=== PATIENT | female | born 1970 | race Caucasian/White ===

== ENCOUNTER 2020-04-01 08:49 | Observation (INO) | payer BC, OTHER ==
[2020-04-01 09:45] LABS: Protime INR 1.01
[2020-04-01 09:48] LABS: Basophils % 0.3 % (0-1.3); Hematocrit 45.9 % (36.0-45.0); Lymphocytes % 6.1 % (15.3-44.8); MPV 8.2 fL (7.6-11.3); RBC Red Blood Cell Count 5.39 M/uL (3.86-4.86)
[2020-04-01 09:55] LABS: ALT/SGPT 23 U/L (12-78); AST/SGOT 20 U/L (15-37); Albumin 4.2 g/dL (3.4-5.0); Alkaline Phosphatase 176 U/L (45-117); BUN Blood Urea Nitrogen 11 mg/dL (7-18); Bicarbonate 18 mmol/L (21-32); Bilirubin Direct 0.1 mg/dL (0-0.2); Bilirubin Total 0.6 mg/dL (0.2-1.0); Glucose Level 319 mg/dL (74-106); Magnesium 2.2 mg/dL (1.8-2.4); NT PRO-BNP 76 pg/mL (<125); Potassium 3.5 mmol/L (3.5-5.1); Protein, Total 8.7 g/dL (6.4-8.2); Sodium Level 125 mmol/L (136-145); Troponin (Emerg Dept Use Only) < 0.02 ng/mL (0.0-0.045)
--- NOTE | 2020-04-01 10:08 | RAD REPORT ---
EXAM DESCRIPTION: RAD - Chest Single View - 04/01/2020 9:48 am CLINICAL HISTORY: SOB, chest pain, vomiting COMPARISON: None TECHNIQUE: AP portable chest image was obtained 04/01/2020 9:48 am . FINDINGS: Lungs are clear. Heart and vasculature are normal. No measurable pleural effusion and no p neumothorax. No acute bony abnormality seen. No acute aortic findings suspected. IMPRESSION: No acute cardiopulmonary process.
[2020-04-01] MEDS ORDERED: LORazepam 2 MG/ML VIAL ONE (10:13)
[2020-04-01] MEDS ORDERED: METOCLOPRAMIDE 10 MG/2mL INJ ONE (10:13)
[2020-04-01] MEDS ORDERED: NA CHLORIDE 0.9% 1,000 ML ONE ×3 (10:13→14:46)
[2020-04-01 10:18] LABS: Blood Morphology Comment NOT SEEN (NOT SEEN); Platelet Estimate INCR
[2020-04-01 10:41] LABS: Arterial Blood Carboxyhemoglob 3.2 % (0-1.5); Blood Gas Oxyhemoglobin 92.5 % (94-97); Blood O2 Saturation 96.5 % (92-98.5)
[2020-04-01] MEDS ORDERED: INSULIN -REGULAR HUMAN 50 UNIT/0.5 ML ML ONE (10:59)
--- NOTE | 2020-04-01 11:06 | ER ---
Nurse's Notes [facility] Name: Shira Bangura Age: 49 yrs Sex: Female : 1970 Arrival Date: 04/01/2020 Time: 08:52 Bed 20 Private MD: Diagnosis: Hypo-osmolality and hyponatremia;Vomiting;Hyperglycemia, unspecified Presentation: 04/01 08:52 Chief complaint: EMS states: "the pt is reporting that she has been throwing up and jd3 having chest pain since Wednesday last week.". Coronavirus screen: nausea, vomiting. Client presents with at least one sign or symptom that may indicate coronavirus-19. Standard/surgical mask placed on the client. Provider contacted for isolation considerations. Ebola Screen: Patient negative for fever greater than or equal to 101.5 degrees Fahrenheit, and additional compatible Ebola Virus Disease symptoms. Initial Sepsis Screen: Does the patient meet any 2 criteria? No. Patient's initial sepsis screen is negative. Does the patient have a suspected source of infection? No. Patient's initial sepsis screen is negative. Risk Assessment: Do you want to hurt yourself or someone else? Patient reports no desire to harm self or others. Onset of symptoms was March 26, 2020. 08:52 Method Of Arrival: EMS: [facility] jd3 08:52 Acuity: TASHI 3 jd3 Historical: - Allergies: 08:55 PENICILLINS; jd3 08:55 Sulfa (Sulfonamide Antibiotics); jd3 08:55 Iodinated Contrast Media - IV Dye; jd3 - Home Meds: 08:55 Metformin Oral [Active]; Klonopin Oral [Active]; Prozac Oral [Active]; jd3 - PMHx: 08:55 Diabetes - NIDDM; jd3 - Immunization history:: Adult Immunizations unknown. - Social history:: Smoking status: unknown. Screenin:30 Abuse screen: Denies threats or abuse. Denies injuries from another. Nutritional ss screening: No deficits noted. Tuberculosis screening: Never had TB. Fall Risk None identified. Assessment: 09:30 General: Appears uncomfortable, Behavior is cooperative, anxious. Pain: Complains of ss pain in abdomen Pain currently is 7 out of 10 on a pain scale. Quality of pain is described as aching. Neuro: Level of Consciousness is awake, alert, obeys commands, Oriented to person, place, time, situation, Speech is normal, Facial symmetry appears normal. Cardiovascular: Pulses are palpable in right radial artery, right posterior tibial artery, left radial artery and left posterior tibial artery. Respiratory: Airway is patent Respiratory effort is even, unlabored, Respiratory pattern is regular, symmetrical. GI: Reports lower abdominal pain, upper abdominal pain, nausea, vomiting, since "began last week". : Denies burning with urination, urinary frequency. EENT: Nares are clear. Derm: Skin is intact, is healthy with good turgor, Skin is pink, warm \\T\\ dry. normal. Musculoskeletal: Circulation, motion, and sensation intact. Range of motion: intact in all extremities, Swelling absent. 10:30 Reassessment: Patient appears in no apparent distress at this time. Patient and/or ss family updated on plan of care and expected duration. Pain level reassessed. Patient is alert, oriented x 3, equal unlabored respirations, skin warm/dry/pink. Pt no longer appears anxious. Is very pleasant and thankful for care received thus far. Call light remain within reach. Patient denies pain at this time. Patient states feeling better. Patient states symptoms have improved. 11:18 Reassessment: Dr. Cooper at bedside with patient discussing possible admission. ss 12:30 Reassessment: Patient appears in no apparent distress at this time. Patient and/or ss family updated on plan of care and expected duration. Pain level reassessed. 13:00 Reassessment: Patient appears in no apparent distress at this time. No changes from ss previously documented assessment. Patient and/or family updated on plan of care and expected duration. Pain level reassessed. Pt aware of admission for further evaluation and treatment. Awaiting room assignment from warehouse technician. Will repeat BMP after 2nd liter bolus is completed. 14:09 Reassessment: Repeat BMP sent to lab at this time. Awaiting results. Awaiting room ss assignment for admission. Vital Signs: 08:55 BP 131 / 105; Pulse 125; Resp 20 S; Pulse Ox 97% on R/A; Weight 83.91 kg (R); Height 5 jd3 ft. 5 in. (165.10 cm) (R); Pain 6/10; 08:57 Temp 98.9(TE); ss 09:16 BP 164 / 113; Pulse 106; Resp 18; Pulse Ox 98% on R/A; ss 10:39 Pulse 89; Resp 17; Pulse Ox 99% on R/A; ss 10:48 BP 136 / 88; ss 13:45 BP 147 / 105; Pulse 91; Resp 16; Pulse Ox 99% ; Pain 0/10; ss 14:13 BP 154 / 81; ss 08:55 Body Mass Index 30.79 (83.91 kg, 165.10 cm) jd3 ED Course: 08:52 Patient arrived in ED. jd3 08:53 Triage completed. jd3 08:56 Arm band placed on. jd3 08:56 EKG completed in triage. Results shown to MD. jd3 09:07 Felton Zheng PA is PHCP. jmm 09:07 Dallin Berman MD is Attending Physician. jmm 09:16 Ange Gonzalez, KAREN is Primary Nurse. ss 09:30 Patient has correct armband on for positive identification. Placed in gown. Bed in low ss position. Call light in reach. Side rails up X2. engine monitor on. Pulse ox on. NIBP on. Warm blanket given. 09:34 Inserted saline lock: 22 gauge in left forearm, using aseptic technique. ss 09:48 XRAY Chest (1 view) In Process Unspecified. EDMS 11:05 Samson Cooper DO is Hospitalizing Provider. jmm 11:12 CT Stone Protocol In Process Unspecified. EDMS 12:55 First set of blood cultures drawn. em1 14:09 No provider procedures requiring assistance completed. Patient admitted, IV remains in ss place. Administered Medications: 09:36 Not Given (Patient Refused): diphenhydrAMINE 12.5 mg IVP once ss 10:02 Drug: NS 0.9% 1000 ml Route: IV; Rate: 1 bolus; Site: left wrist; ss 12:09 Follow up: IV Status: Completed infusion; IV Intake: 1000ml ss 10:04 Drug: Reglan 10 mg Route: IVP; Site: left wrist; ss 10:47 Follow up: Response: No adverse reaction ss 10:05 Drug: Ativan 1 mg Route: IVP; Site: left wrist; ss 10:47 Follow up: Response: No adverse reaction; Marked relief of symptoms; Anxiety decreased ss 10:46 Drug: Insulin Regular Human 10 units {Co-Signature: jd3 (Grayson Jimenez RN).} Route: ss IVP; Site: left forearm; 11:37 Follow up: Response: No adverse reaction; Blood sugar is lowered 12:08 Drug: NS 0.9% 1000 ml Route: IV; Rate: 1 bolus; Site: left forearm; ss 14:12 Follow up: IV Status: Completed infusion; IV Intake: 1000ml ss Intake: 12:09 IV: 1000ml; Total: 1000ml. 14:12 IV: 1000ml; Total: 2000ml. Outcome: 11:06 Decision to Hospitalize by Provider. jaydon 13:00 Admitted to ER Hold. Please see [facility] for further documentation. 13:00 Condition: good 13:00 Instructed on the need for admit. 16:25 Patient left the ED. Signatures: Dispatcher [employer] EDFelton Lucas PA PA jmm Martinez, Eric em1 Ange Gonzalez RN RN ss Davies, Jonathon, RN RN jd3 Grayson Jimenez RN jd3
--- NOTE | 2020-04-01 11:06 | EDPHYS ---
Physician Documentation [facility] Name: Shira Bangura Age: 49 yrs Sex: Female : 1970 Arrival Date: 04/01/2020 Time: 08:52 Bed 20 Private MD: ED Physician Dallin Berman HPI: 04/01 09:19 This 49 yrs old Female presents to ER via EMS with complaints of Vomiting. m 09:19 The patient presents to the emergency department with nausea, vomiting. Onset: The jmm symptoms/episode began/occurred gradually, 1 week(s) ago. Possible causes:. The symptoms are aggravated by nothing. The symptoms are alleviated by nothing. This is a 49 year old female with a history of DM, anxiety that presents to the ED with complaints of vomiting for approx 1 week. Denies recent abx use, recent travel. Patient states she has been out of her Klonopin. Denies abdominal pain, chest pain. . Historical: - Allergies: 08:55 PENICILLINS; jd3 08:55 Sulfa (Sulfonamide Antibiotics); jd3 08:55 Iodinated Contrast Media - IV Dye; jd3 - Home Meds: 08:55 Metformin Oral [Active]; Klonopin Oral [Active]; Prozac Oral [Active]; jd3 - PMHx: 08:55 Diabetes - NIDDM; jd3 - Immunization history:: Adult Immunizations unknown. - Social history:: Smoking status: unknown. ROS: 09:19 Constitutional: Negative for fever, chills, and weight loss, Cardiovascular: Negative jmm for chest pain, palpitations, and edema. 09:19 Respiratory: Positive for shortness of breath. 09:19 Abdomen/GI: Positive for abdominal pain. 09:19 All other systems are negative. Exam: 09:19 Head/Face: atraumatic. Eyes: EOMI, no conjunctival erythema appreciated ENT: Moist jmm Mucus Membranes Neck: Trachea midline, Supple 09:19 Chest/axilla: Normal chest wall appearance and motion. 09:19 Respiratory: Normal respirations, no respiratory distress appreciated Abdomen/GI: Non distended, soft Back: Normal ROM Skin: General appearance color normal MS/ Extremity: Moves all extremities, no obvious deformities appreciated, no edema noted to the lower extremities Neuro: Awake and alert, normal gait Psych: Behavior is normal, Mood is normal, Patient is cooperative and pleasant 09:19 Constitutional: The patient appears alert, awake, anxious. 09:19 Cardiovascular: Rate: tachycardic, Rhythm: regular, Pulses: no pulse deficits are appreciated. Vital Signs: 08:55 BP 131 / 105; Pulse 125; Resp 20 S; Pulse Ox 97% on R/A; Weight 83.91 kg (R); Height 5 jd3 ft. 5 in. (165.10 cm) (R); Pain 6/10; 08:57 Temp 98.9(TE); ss 09:16 BP 164 / 113; Pulse 106; Resp 18; Pulse Ox 98% on R/A; ss 10:39 Pulse 89; Resp 17; Pulse Ox 99% on R/A; ss 10:48 BP 136 / 88; ss 13:45 BP 147 / 105; Pulse 91; Resp 16; Pulse Ox 99% ; Pain 0/10; ss 14:13 BP 154 / 81; ss 08:55 Body Mass Index 30.79 (83.91 kg, 165.10 cm) jd3 MDM: 09:09 Patient medically screened. [facility] 11:02 Data reviewed: vital signs, nurses notes. Counseling: I had a detailed discussion with jaydon the patient and/or guardian regarding: the historical points, exam findings, and any diagnostic results supporting the discharge/admit diagnosis, lab results, radiology results, the need for further work-up and treatment in the hospital. ED course: I discussed the patient with Dr. Cooper whom accepted the patient for admisison. 04/01 09:16 Order name: Basic Metabolic Panel; Complete Time: 09:56 [facility] 04/01 09:16 Order name: CBC with Diff; Complete Time: 10:24 [facility] 04/01 09:16 Order name: LFT's; Complete Time: 09:56 [facility] 04/01 09:16 Order name: Magnesium; Complete Time: 09:56 [facility] 04/01 09:16 Order name: NT PRO-BNP; Complete Time: 09:56 [facility] 04/01 09:16 Order name: PT-INR; Complete Time: 09:56 [facility] 04/01 09:16 Order name: Troponin (emerg Dept Use Only); Complete Time: 09:56 [facility] 04/01 09:41 Order name: D-Dimer; Complete Time: 09:56 [facility] 04/01 10:09 Order name: ABG; Complete Time: 11:31 [facility] 04/01 10:18 Order name: Manual Differential; Complete Time: 10:24 [facility] 04/01 10:51 Order name: UDS; Complete Time: 12:56 [facility] 04/01 11:00 Order name: Ketone, Serum; Complete Time: 11:27 [facility] 04/01 09:16 Order name: XRAY Chest (1 view); Complete Time: 10:15 [facility] 04/01 10:51 Order name: CT Stone Protocol; Complete Time: 11:44 [facility] 04/01 11:42 Order name: Glucose, Ancillary Testing; Complete Time: 11:44 [facility] 04/01 12:05 Order name: Blood Culture [facility] 04/01 12:12 Order name: Urine Dipstick--Ancillary (enter results) 04/01 12:12 Order name: Urine --Ancillary (enter results) 04/01 12:17 Order name: SARS-COV-2 RT PCR; Complete Time: 12:56 [facility] 04/01 13:18 Order name: Urine --Ancillary; Complete Time: 13:26 [facility] 04/01 13:19 Order name: Urine Dipstick-Ancillary; Complete Time: 13:26 [facility] 04/01 13:48 Order name: BMP [facility] 04/01 13:48 Order name: Hemoglobin A1c [facility] 04/01 14:43 Order name: Basic Metabolic Panel; Complete Time: 15:02 [facility] 04/01 15:01 Order name: Acetone Level; Complete Time: 15:02 [facility] 04/01 15:09 Order name: Hemoglobin A1c; Complete Time: 15:30 [facility] 04/01 15:10 Order name: Glucose, Ancillary Testing; Complete Time: 15:30 [facility] 04/01 16:21 Order name: Procalcitonin; Complete Time: 18:22 [facility] 04/01 09:16 Order name: EKG; Complete Time: 09:17 [facility] 04/01 09:16 Order name: Cardiac monitoring; Complete Time: 09:26 [facility] 04/01 09:16 Order name: EKG - Nurse/Tech; Complete Time: 09:26 [facility] 04/01 09:16 Order name: IV Saline Lock; Complete Time: 10:05 [facility] 04/01 09:16 Order name: Labs collected and sent; Complete Time: 10:05 [facility] 04/01 09:16 Order name: O2 Per Protocol; Complete Time: 09:26 [facility] 04/01 09:16 Order name: O2 Sat Monitoring; Complete Time: : [facility] 04/01 10:25 Order name: Urine Dipstick-Ancillary (obtain specimen); Complete Time: 12:08 [facility] Administered Medications: 09:36 Not Given (Patient Refused): diphenhydrAMINE 12.5 mg IVP once ss 10:02 Drug: NS 0.9% 1000 ml Route: IV; Rate: 1 bolus; Site: left wrist; ss 12:09 Follow up: IV Status: Completed infusion; IV Intake: 1000ml ss 10:04 Drug: Reglan 10 mg Route: IVP; Site: left wrist; ss 10:47 Follow up: Response: No adverse reaction ss 10:05 Drug: Ativan 1 mg Route: IVP; Site: left wrist; ss 10:47 Follow up: Response: No adverse reaction; Marked relief of symptoms; Anxiety decreased ss 10:46 Drug: Insulin Regular Human 10 units {Co-Signature: tye (Grayson Jimenez RN).} Route: ss IVP; Site: left forearm; 11:37 Follow up: Response: No adverse reaction; Blood sugar is lowered ss 12:08 Drug: NS 0.9% 1000 ml Route: IV; Rate: 1 bolus; Site: left forearm; ss 14:12 Follow up: IV Status: Completed infusion; IV Intake: 1000ml ss Disposition: 18:59 Co-signature as Attending Physician, Dallin Berman MD I agree with the assessment and [facility] plan of care. Disposition: 04/01/20 11:06 Hospitalization ordered by Samson Cooper for Observation. Preliminary diagnosis are Hypo-osmolality and hyponatremia, Vomiting, Hyperglycemia, unspecified. - Bed requested for Telemetry/MedSurg (observation). - Status is Observation. ss - Condition is Stable. - Problem is new. - Symptoms are unchanged. Signatures: Dispatcher [employer] Vida Patel, RN Dallin Joshi MD MD cha Mickail, Joel, PA PA jmm Smirch, Shelby, RN RN ss Davies, Jonathon, RN RN jd3 Grayson Jimenez RN jd3 Corrections: (The following items were deleted from the chart) 09:40 09:26 D-DIMER+COAG.LAB.BRZ ordered. EDMS EDMS 11:23 10:53 CORONAVIRUS+MR.LAB.BRZ ordered. EDMS EDMS 14:19 11:06 Hospitalization Ordered by Samson Cooper DO for Observation. Preliminary ss diagnosis is Hypo-osmolality and hyponatremia; Vomiting; Hyperglycemia, unspecified. Bed requested for Telemetry/MedSurg (observation). Status is Observation. Condition is Stable. Problem is new. Symptoms are unchanged. jmm 16:10 14:19 04/01/2020 11:06 Hospitalization Ordered by Samson Cooper DO for Observation. dw Preliminary diagnosis is Hypo-osmolality and hyponatremia; Vomiting; Hyperglycemia, unspecified. Bed requested for [facility] ER HOLD. Status is Observation. Condition is Stable. Problem is new. Symptoms are unchanged. ss 16:25 16:10 04/01/2020 11:06 Hospitalization Ordered by Samson Cooper DO for Observation. ss Preliminary diagnosis is Hypo-osmolality and hyponatremia; Vomiting; Hyperglycemia, unspecified. Bed requested for Telemetry/MedSurg (observation). Status is Observation. Condition is Stable. Problem is new. Symptoms are unchanged. dw
--- NOTE | 2020-04-01 11:40 | RAD REPORT ---
EXAM DESCRIPTION: CT - Stone Protocol - 04/01/2020 11:12 am CLINICAL HISTORY: ABD PAIN COMPARISON: No comparisons TECHNIQUE: Axial [address] imaging of the abdomen and pelvis was performed without IV contrast. No IV contrast was given because of allergy, abnormal renal function, patient refusal or physician re quest. No oral contrast. All CT scans are performed using dose optimization technique as appropriate and may include automated exposure control or mA/KV adjustment according to patient size. FINDINGS: No suspicious findings in the lung bases. No pericardial thickening or effusion. Normal size liver shows fatty infiltration pattern. In the central segment IV along the superior milena in of the gallbladder fossa there is a 2.4 centimeter oval low-density focus. This may be a cyst. Hem angioma is possible. Aggressive lesion is unlikely. There are no comparisons. No other liver lesion. Spleen and pancreas show no suspicious findings. Gallbladder is normal size. Gallbladder content is m ore dense than typically seen for bile. This may be dense bile. Sludge or stones can be occult on CT imaging. Follow-up sonography could be performed if there are findings on clinical exam for gallbladd er disease. No biliary tree dilatation. No hydronephrosis or suspicious renal mass. Patient has bilateral extrarenal pelves is a normal varia nt. No obstructing or nonobstructing calculi. No significant adrenal finding. Isodense renal masses a nd pyelonephritis cannot be excluded in the absence of IV contrast. The urinary bladder is without si gnificant finding. Uterus is somewhat bulky and may contain isodense fibroids. No suspicious ovarian finding. No dilated bowel loops or bowel wall thickening. No appendicitis. No active GI process seen. No free air, free fluid or inflammatory stranding. No hernia, mass or bulky lymphadenopathy. No suspicious bony findings. Prominent for age lower lumbar bone and disc degenerative change. IMPRESSION: Noncontrast CT study shows no acute or emergent finding. Fatty infiltration of the liver is present. Low-density 2.4 centimeter mass central liver could be a minimally complex cyst or possible hemangioma. Follow-up outpatient ultrasound could be performed. Hyperdensity of the gallbladder lumen content could be thickened bile. Stones and sludge can be occul t. Follow-up sonography can be performed as warranted. No acute GI finding. Possible isodense fibroids in a bulky uterus. No ovarian abnormality. Full assessment is limited is the absence of IV contrast.
[2020-04-01 12:20] LABS: Barbiturates NEGATIVE (NEGATIVE); Benzodiazepines NEGATIVE (NEGATIVE); Cocaine NEGATIVE (NEGATIVE); METHAMPHETAM NEGATIVE (NEGATIVE); Methadone NEGATIVE (NEGATIVE); Opiates NEGATIVE (NEGATIVE); Phencyclidine NEGATIVE (NEGATIVE); THC Cannibis NEGATIVE (NEGATIVE)
[2020-04-01 13:18] LABS: Urine Blood NEGATIVE (NEG); Urine Glucose TRACE (NEG); Urine Protein 1+ (NEG)
--- NOTE | 2020-04-01 13:52 | P.HP ---
Certification for Inpatient Patient admitted to: Observation With expected LOS: <2 Midnights Patient will require the following post-hospital care: None Practitioner: I am a practitioner with admitting privileges, knowledge of patient current condition, hospital course, and medical plan of care. Services: Services provided to patient in accordance with Admission requirements found in Title 42 Section 412.3 of the Code of Federal Regulations Patient History Date of Service: 04/01/20 Primary Care Provider: none Reason for admission: nausea, vomiting, not feeling well. History of Present Illness: 49-year-old female with history of diabetes, panic disorder, hypertension. Patient presented with 1 week of nausea, vomiting. She reported that around Wednesday last week she felt bad all over. She denied any significant abdominal pain. She also reported some shortness of breath. Patient has been trying to get refills on her medication this includes Klonopin. She was trying to establish care with somebody here locally. Patient continue to have nausea and vomiting. She was not able to take good oral intake. Patient denied any significant fever, chills. Although she did report some hot flashes. She came to the ER for further evaluation. In the ER patient was evaluated. Vital signs stable. White count 16.9, hemoglobin 15. Platelet count 433. ABG shows a pH is 7.365. Sodium 125, potassium 3.5. BUN of 11, creatinine 0.91 with a GFR 65. Glucose 319. Acetone in negative. Anion gap 15. Troponin unremarkable. Urine drug screen negative. Chest x-ray unremarkable. COVID negative. Patient was given IV fluids in the emergency room. Patient was admitted for further evaluation and treatment. When I saw the patient ER, patient appeared stable. Allergies Penicillins Allergy (Verified 04/01/20 12:26) Hives Home medications list reviewed: Yes - Past Medical/Surgical History Diabetic: Yes -: Diabetes mellitus type 2 [id number] -: Panic disorder -: Hypertension -: Tobacco abuse Past Surgical History: Patient denies surgical history Psychosocial/ Personal History: Currently settling in the area. - Family History Family History: Reviewed- Non-Contributory - Social History Smoking Status: Light Tobacco smoker (1-9 cigarettes/day) Counseled patient to stop smoking for: less than 10 minutes Smoking therapy provided: Yes Patient receptive to therapy: Yes Alcohol use: No CD- Drugs: No Caffeine use: Yes Place of Residence: Home Review of Systems General: Sweats, Weakness, Malaise, As per HPI Eyes: Unremarkable ENT: Unremarkable Respiratory: Shortness of Breath, As per HPI Cardiovascular: Unremarkable Gastrointestinal: Nausea, Vomiting, As per HPI Genitourinary: Unremarkable Musculoskeletal: As per HPI Integumentary: Unremarkable Neurological: As per HPI Lymphatics: Unremarkable Physical Examination - Physical Exam General: Alert, In no apparent distress, Oriented x3, Cooperative, Other (Multiple tattoos noted) HEENT: Atraumatic, Normocephalic, Other (Dry mucous membranes) Neck: Supple Respiratory: Clear to auscultation bilaterally, Normal air movement Cardiovascular: Normal pulses, Regular rate/rhythm Gastrointestinal: Normal bowel sounds, No tenderness, No masses, No rebound, No guarding Musculoskeletal: No erythema, No tenderness, No warmth Integumentary: No tenderness/swelling Neurological: Normal speech, Normal strength at 5/5 x4 extr, Normal tone, Normal affect - Studies Laboratory Data (last 24 hrs) 04/01/20 09:30: PT 11.9, INR 1.01 04/01/20 09:30: WBC 16.9 H, Hgb 15.6 H, Hct 45.9 H, Plt Count 433 H 04/01/20 09:30: Sodium 125 L, Potassium 3.5, BUN 11, Creatinine 0.91, Glucose 319 H, Magnesium 2.2, Total Bilirubin 0.6, AST 20, ALT 23, Alkaline Phosphatase 176 H Assessment and Plan - Plan Impression: Nausea and vomiting secondary to diabetes mellitus type 2 with hyperglycemia Hyponatremia with dehydration Hypertension Panic disorder Possible complex cyst versus hemangioma Possible uterine fibroids Plan: Nausea and vomiting secondary to diabetes mellitus type 2 with hyperglycemia: Patient will be admitted for further evaluation and treatment. Patient should receive another fluid bolus in the emergency room. Will recheck lab soon to evaluate for possible DKA. Urine drug screen negative. Acetone serum-negative. No evidence of infection at this time. Will provide medication for nausea. Will check A1c to evaluate her diabetes. Will start low-dose basal insulin for better diabetic control. Anticipate A1c elevation. Will need better control of diabetes. Will hold metformin at this time. Continue with IV fluids maintenance. Provide DVT prophylaxis-Lovenox. Will continue to reassess. Anticipate improvement over the next 24 hr with possible discharge. Hyponatremia with dehydration: Patient given IV fluid bolus in the emergency room. Will give another bolus of IV fluids then continue maintenance fluids. Recheck lab soon to monitor her progress. Will start with a full liquid diet then advance to 2000 ADA diet. Hypertension: Restart lisinopril. will monitor and adjust appropriately. Panic disorder: Patient reports taking 4 mg of Klonopin twice daily. This appears to be a very large dose of Klonopin. Recommend to wean this off as an outpatient. Will provide Klonopin 1 mg 3 times a day as needed at this time. Will monitor closely. Patient would benefit with psychiatric evaluation as an outpatient. Risks of continued benzodiazepine use address in detail. Will continue with Prozac. Possible complex cyst versus hemangioma: Recommend abdominal ultrasound as an outpatient to further monitor and address. Possible uterine fibroids: Recommend pelvic ultrasound to further evaluate. Patient should have annual evaluation with gynecology as an outpatient. Discharge Plan: Home Plan to discharge in: 48 Hours - Advance Directives Does patient have a Living Will: No Does patient have a Durable POA for Healthcare: No - Code Status/Comfort Care Code Status Assessed: Yes (Patient is full code) Time Spent Managing Pts Care (In Minutes): 55
[2020-04-01] MEDS ORDERED: ONDANSETRON 4 MG/2 ML VIAL IV PRN (14:07)
[2020-04-01] MEDS ORDERED: ACETAMINOPHEN 500 MG TAB PO PRN (14:07)
[2020-04-01] MEDS ORDERED: GLUCAGON 1 MG/VIAL IM PRN (14:07)
[2020-04-01 14:41] LABS: BUN Blood Urea Nitrogen 10 mg/dL (7-18); Bicarbonate 21 mmol/L (21-32); Glucose Level 197 mg/dL (74-106); Potassium 3.5 mmol/L (3.5-5.1); Sodium Level 136 mmol/L (136-145)
[2020-04-01] MEDS ORDERED: INSULIN GLARGINE 100 UNITS/ML SQ ONE (14:46)
[2020-04-01] MEDS: NA CHLORIDE 0.9% 1,000 ML IV SCH ×2 (14:50→23:42)
[2020-04-01] MEDS: INSULIN GLARGINE 100 UNITS/ML SQ SCH (14:50)
[2020-04-01] MEDS ORDERED: D50W 25 GM/50 ML VIAL IV PRN (14:58)
[2020-04-01 15:53] LABS: Urine Appearance CLEAR; Urine Bilirubin NEGATIVE (NEG); Urine Blood NEGATIVE (NEG); Urine Color YELLOW; Urine Glucose TRACE (NEG); Urine Protein 1+ (NEG); Urine pH 6.5 (5.0-7.0)
[2020-04-01] MEDS: ENOXAPARIN 40 MG/0.4 ML SQ SCH (16:00)
[2020-04-01 16:47] LABS: Urine Amorphous Sediment TRACE /HPF (NONE SEEN); Urine Bacteria <20 /HPF (<20); Urine Microscopic Reflex ORDER UMIC; Urine RBC <5 /HPF (NONE SEEN)
[2020-04-01] MEDS: INSULIN -REGULAR HUMAN 50 UNIT/0.5 ML ML SQ SCH ×2 (17:21→20:28)
[2020-04-01] MEDS: clonazePAM 1 MG TAB PO PRN (17:23)
[2020-04-01 17:37] VITALS: BMI 29.9
[2020-04-01] MEDS: FAMOTIDINE 20 MG TAB PO SCH (20:28)
[2020-04-02] MEDS: clonazePAM 1 MG TAB PO PRN ×2 (02:55→08:26)
[2020-04-02] MEDS: NA CHLORIDE 0.9% 1,000 ML IV SCH ×2 (04:48→05:35)
[2020-04-02 05:39] LABS: Basophils % 0.9 % (0-1.3); Hematocrit 36.9 % (36.0-45.0); Lymphocytes % 20.6 % (15.3-44.8); MPV 7.8 fL (7.6-11.3)
[2020-04-02 06:01] LABS: ALT/SGPT 15 U/L (12-78); AST/SGOT 13 U/L (15-37); Albumin 3.1 g/dL (3.4-5.0); Alkaline Phosphatase 123 U/L (45-117); BUN Blood Urea Nitrogen 9 mg/dL (7-18); Bicarbonate 21 mmol/L (21-32); Bilirubin Total 0.3 mg/dL (0.2-1.0); Glucose Level 122 mg/dL (74-106); Magnesium 2.3 mg/dL (1.8-2.4); Potassium 3.1 mmol/L (3.5-5.1); Protein, Total 6.1 g/dL (6.4-8.2); Sodium Level 140 mmol/L (136-145)
[2020-04-02] MEDS ORDERED: POTASSIUM CL SA 10 MEQ TAB PO ONE (08:00)
[2020-04-02 08:08] VITALS: TEMP 97
[2020-04-02] MEDS: INSULIN -REGULAR HUMAN 50 UNIT/0.5 ML ML SQ SCH ×2 (08:24→11:14)
[2020-04-02] MEDS: FAMOTIDINE 20 MG TAB PO SCH (08:25)
[2020-04-02] MEDS: INSULIN GLARGINE 100 UNITS/ML SQ SCH (08:25)
[2020-04-02] MEDS: ENOXAPARIN 40 MG/0.4 ML SQ SCH ×2 (08:26→08:32)
[2020-04-02] MEDS ORDERED: FLUOXETINE 20 MG CAP PO SCH (09:00)
[2020-04-02] MEDS ORDERED: lisinopriL 10 MG TAB PO SCH (09:00)
[2020-04-02] MEDS ORDERED: METOPROLOL TAR 25 MG TAB PO SCH (09:04)
--- NOTE | 2020-04-02 09:18 | P.DS ---
Admission Date: 04/01/20 Discharge Date: 04/02/20 Primary Care Provider: none Disposition: ROUTINE DISCHARGE Discharge Condition: GOOD Reason for Admission: nausea, vomiting, not feeling well. Consultations: none Procedures: CXR: FINDINGS: Lungs are clear. Heart and vasculature are normal. No measurable pleural effusion and no pneumothorax. No acute bony abnormality seen. No acute aortic findings suspected. IMPRESSION: No acute cardiopulmonary process. CT scan: FINDINGS: No suspicious findings in the lung bases. No pericardial thickening or effusion. Normal size liver shows fatty infiltration pattern. In the central segment IV along the superior margin of the gallbladder fossa there is a 2.4 centimeter oval low-density focus. This may be a cyst. Hemangioma is possible. Aggressive lesion is unlikely. There are no comparisons. No other liver lesion. Spleen and pancreas show no suspicious findings. Gallbladder is normal size. Gallbladder content is more dense than typically seen for bile. This may be dense bile. Sludge or stones can be occult on CT imaging. Follow-up sonography could be performed if there are findings on clinical exam for gallbladder disease. No biliary tree dilatation. No hydronephrosis or suspicious renal mass. Patient has bilateral extrarenal pelves is a normal variant. No obstructing or nonobstructing calculi. No significant adrenal finding. Isodense renal masses and pyelonephritis cannot be excluded in the absence of IV contrast. The urinary bladder is without significant finding. Uterus is somewhat bulky and may contain isodense fibroids. No suspicious ovarian finding. No dilated bowel loops or bowel wall thickening. No appendicitis. No active GI process seen. No free air, free fluid or inflammatory stranding. No hernia, mass or bulky lymphadenopathy. No suspicious bony findings. Prominent for age lower lumbar bone and disc degenerative change. IMPRESSION: Noncontrast CT study shows no acute or emergent finding. Fatty infiltration of the liver is present. Low-density 2.4 centimeter mass central liver could be a minimally complex cyst or possible hemangioma. Follow-up outpatient ultrasound could be performed. Hyperdensity of the gallbladder lumen content could be thickened bile. Stones and sludge can be occult. Follow-up sonography can be performed as warranted. No acute GI finding. Possible isodense fibroids in a bulky uterus. No ovarian abnormality. Medical Problem List: Nausea and vomiting secondary to diabetes mellitus type 2 with hyperglycemia Hyponatremia with dehydration Hypertension Panic disorder Possible complex cyst versus hemangioma Possible uterine fibroids Brief History of Present Illness: 49-year-old female with history of diabetes, panic disorder, hypertension. Patient presented with 1 week of nausea, vomiting. She reported that around Wednesday last week she felt bad all over. She denied any significant abdominal pain. She also reported some shortness of breath. Patient has been trying to get refills on her medication this includes Klonopin. She was trying to establish care with somebody here locally. Patient continue to have nausea and vomiting. She was not able to take good oral intake. Patient denied any significant fever, chills. Although she did report some hot flashes. She came to the ER for further evaluation. In the ER patient was evaluated. Vital signs stable. White count 16.9, hemoglobin 15. Platelet count 433. ABG shows a pH is 7.365. Sodium 125, potassium 3.5. BUN of 11, creatinine 0.91 with a GFR 65. Glucose 319. Acetone in negative. Anion gap 15. Troponin unremarkable. Urine drug screen negative. Chest x-ray unremarkable. COVID negative. Patient was given IV fluids in the emergency room. Patient was admitted for further evaluation and treatment. When I saw the patient ER, patient appeared stable. Hospital Course: Patient presented with Nausea and vomiting. Patient found to have hyperglycemia related to diabetes mellitus type 2. Patient was evaluated for DKA. Patient had negative serum acetone. Repeat lab showed no evidence of DKA. Patient was started on treatment for diabetes. Patient found to have hemoglobin A1c of 9.2. Patient needs better diabetic control. Nausea and vomiting may be related to underlying GERD. At discharge will provide Pepcid 20 mg 1 pill twice daily for GERD. As for her diabetes will start glimepiride 1 mg 1 pill twice daily. Recommend to monitor blood sugars at least twice daily. Recommend to maintain blood sugar less than 140 fasting and less than 200 after meals. Further adjustment in medication can be done by her PCP. Will provide a list of PCPs in the area to establish care and further address her diabetes. Diabetic education provided. Recommend recheck hemoglobin A1c in 3 months to monitor her progress. Patient had hyponatremia with dehydration. This is likely from her nausea and vomiting. This has resolved. Patient back to baseline. Encourage good oral intake. Recommend to recheck lab-BMP in 2-4 weeks to monitor her progress. Patient with hypertension. Patient previously on lisinopril. Patient required additional medication for better blood pressure control. At discharge patient will continue with metoprolol 25 mg 1 pill twice daily and lisinopril 10 mg 1 pill twice daily. Recommend to maintain blood pressure less than 130/80. Further adjustment may be required. This can be done with the help of her PCP. Education on hypertension will be provided. Patient with panic disorder. Patient takes Klonopin and Prozac. Patient gets her medication from a doctor out of [place], [place]. Her use of Klonopin was reviewed on the [place] prescription monitoring program. Her most recent refill of Klonopin was on 03/05/20. She also had another refill of medication on 02/28/20. Her overdose risk score was 420. This was addressed in detail with the patient. Education provided. Recommend to wean off benzodiazepine. At discharge she may continue with her Prozac medication. Recommend follow up with her PCP or her prescribing physician of benzodiazepine to help her wean off. Would also recommend psychiatry evaluation as an outpatient with counseling. Patient understands the risk of continued use of benzodiazepine. Information will be provided. Patient had CT scan showing liver complex cyst and uterine fibroids. Recommend abdominal ultrasound as an outpatient to further address the complex cyst versus hemangioma. Education on liver cyst versus hemangioma will be provided. Recommend gynecology evaluation in the future to address her uterine fibroids. Vital Signs/Physical Exam: Temp Pulse Resp BP Pulse Ox 97.0 F 102 H 18 191/101 H 98 04/02/20 08:00 04/02/20 08:26 04/02/20 08:00 04/02/20 08:26 04/02/20 08:00 General: Alert, In no apparent distress, Oriented x3, Cooperative, Other (Very anxious) HEENT: Atraumatic Neck: Supple Respiratory: Clear to auscultation bilaterally, Normal air movement Cardiovascular: Normal pulses, Regular rate/rhythm Gastrointestinal: Normal bowel sounds, Soft and benign, Non-distended Neurological: Normal speech, Normal strength at 5/5 x4 extr, Normal tone, Abnormal affect (Increase anxiety) Laboratory Data at Discharge: WBC 9.6 K/uL (4.3-10.9) D 04/02/20 05:08 Hgb 12.6 g/dL (12.0-15.0) D 04/02/20 05:08 Hct 36.9 % (36.0-45.0) D 04/02/20 05:08 Plt Count 301 K/uL (152-406) D 04/02/20 05:08 PT 11.9 SECONDS (9.5-12.5) 04/01/20 09:30 INR 1.01 04/01/20 09:30 Sodium 140 mmol/L (136-145) 04/02/20 05:08 Potassium 3.1 mmol/L (3.5-5.1) L 04/02/20 05:08 BUN 9 mg/dL (7-18) 04/02/20 05:08 Creatinine 0.64 mg/dL (0.55-1.3) 04/02/20 05:08 Glucose 122 mg/dL (74-106) H 04/02/20 05:08 Magnesium 2.3 mg/dL (1.8-2.4) 04/02/20 05:08 Total Bilirubin 0.3 mg/dL (0.2-1.0) 04/02/20 05:08 AST 13 U/L (15-37) L 04/02/20 05:08 ALT 15 U/L (12-78) 04/02/20 05:08 Alkaline Phosphatase 123 U/L (45-117) H 04/02/20 05:08 Home Medications: Famotidine [Pepcid*] 20 mg PO BID #60 tab 04/02/20 Glimepiride 1 mg PO BID #60 tablet 04/02/20 Metoprolol Tartrate [Lopressor*] 25 mg PO BID 6AM 6PM #60 tab 04/02/20 lisinopriL [Prinivil*] 10 mg PO BID #60 tab 04/02/20 New Medications: Glimepiride 1 mg PO BID #60 tablet Metoprolol Tartrate [Lopressor*] 25 mg PO BID 6AM 6PM #60 tab Famotidine [Pepcid*] 20 mg PO BID #60 tab lisinopriL [Prinivil*] 10 mg PO BID #60 tab Patient Discharge Instructions: Recommend to establish care with a PCP to follow up this hospitalization and continue her care. Patient presented with Nausea and vomiting. Patient found to have hyperglycemia related to diabetes mellitus type 2. Patient was evaluated for DKA. Patient had negative serum acetone. Repeat lab showed no evidence of DKA. Patient was started on treatment for diabetes. Patient found to have hemoglobin A1c of 9.2. Patient needs better diabetic control. Nausea and vomiting may be related to underlying GERD. At discharge will provide Pepcid 20 mg 1 pill twice daily for GERD. As for her diabetes will start glimepiride 1 mg 1 pill twice daily. Recommend to monitor blood sugars at least twice daily. Recommend to maintain blood sugar less than 140 fasting and less than 200 after meals. Further adjustment in medication can be done by her PCP. Will provide a list of PCPs in the area to establish care and further address her diabetes. Diabetic education provided. Recommend recheck hemoglobin A1c in 3 months to monitor her progress. Patient had hyponatremia with dehydration. This is likely from her nausea and vomiting. This has resolved. Patient back to baseline. Encourage good oral intake. Recommend to recheck lab-BMP in 2-4 weeks to monitor her progress. Patient with hypertension. Patient previously on lisinopril. Patient required additional medication for better blood pressure control. At discharge patient will continue with metoprolol 25 mg 1 pill twice daily and lisinopril 10 mg 1 pill twice daily. Recommend to maintain blood pressure less than 130/80. Further adjustment may be required. This can be done with the help of her PCP. Education on hypertension will be provided. Patient with panic disorder. Patient takes Klonopin and Prozac. Patient gets her medication from a doctor out of [place], [place]. Her use of Klonopin was reviewed on the [place] prescription monitoring program. Her most recent refill of Klonopin was on 03/05/20. She also had another refill of medication on 02/28/20. Her overdose risk score was 420. This was addressed in detail with the patient. Education provided. Recommend to wean off benzodiazepine. At discharge she may continue with her Prozac medication. Recommend follow up with her PCP or her prescribing physician of benzodiazepine to help her wean off. Would also recommend psychia try evaluation as an outpatient with counseling. Patient understands the risk of continued use of benzodiazepine. Information will be provided. Patient had CT scan showing liver complex cyst and uterine fibroids. Recommend abdominal ultrasound as an outpatient to further address the complex cyst versus hemangioma. Education on liver cyst versus hemangioma will be provided. Recommend gynecology evaluation in the future to address her uterine fibroids. Diet: ADA Activity: Ad gavino Followup: Unknown,U [Primary Care Provider] - Time spent managing pt's care (in minutes): 55
[2020-04-02 09:32] VITALS: O2SAT 99
[2020-04-02 10:54] VITALS: BP 150/80
== END 2020-04-02 11:36 | disposition home or self-care (01) ==
LOC: ER 08:49 → ERHOLD 11:50 → 2ND 16:22
PROVIDERS: ADMIT Family Medicine; ATTEND Family Medicine
DX: E11.65 Type 2 diabetes mellitus with hyperglycemia (principal); E87.1 Hypo-osmolality and hyponatremia; I10 Essential (primary) hypertension; F41.0 Panic disorder [episodic paroxysmal anxiety]; R93.2 Abnormal findings on diagnostic imaging of liver and biliary tract; Z20.822 Contact with and (suspected) exposure to COVID-19; R93.89 Abnormal findings on diagnostic imaging of other specified body structures; F17.210 Nicotine dependence, cigarettes, uncomplicated; E86.0 Dehydration
CPT/HCPCS: 93005; 87040 ×2; 85025 ×2; 80048 ×2; 36415; 82010 ×2; 83735 ×2; 81025; 85610; 82947 ×6; 85379; 80076; 80307 ×8; 84443; 83036; 84484; 84439; 80053; 84145; 83880; 76377; 74176; 71045; 82805; 99285; U0003; J2765; J1650 ×2; J7030 ×5; 81003; 81015; J1815

== ENCOUNTER 2020-08-14 15:48 | Emergency (ER) | payer OTHER, SELFPAY ==
[2020-08-14 16:29] LABS: Basophils % 0.5 % (0-1.3); Hematocrit 39.3 % (36.0-45.0); Lymphocytes % 7.3 % (15.3-44.8); MPV 7.8 fL (7.6-11.3); RBC Red Blood Cell Count 4.48 M/uL (3.86-4.86)
[2020-08-14 16:33] LABS: Protime INR 1.03
[2020-08-14 16:44] LABS: ALT/SGPT 27 U/L (12-78); AST/SGOT 18 U/L (15-37); Albumin 3.8 g/dL (3.4-5.0); Alkaline Phosphatase 150 U/L (45-117); BUN Blood Urea Nitrogen 8 mg/dL (7-18); Bicarbonate 19 mmol/L (21-32); Bilirubin Direct < 0.1 mg/dL (0-0.2); Bilirubin Total 0.5 mg/dL (0.2-1.0); Glucose Level 221 mg/dL (74-106); Potassium 3.4 mmol/L (3.5-5.1); Protein, Total 7.7 g/dL (6.4-8.2); Sodium Level 126 mmol/L (136-145)
[2020-08-14] MEDS ORDERED: HYDRALAZINE HCL 20 MG/ML VIAL ONE (16:45)
[2020-08-14 16:49] LABS: Urine Blood Negative (Negative); Urine Glucose Negative (Negative); Urine Protein 2+ (Negative); Urine Specific Gravity 1.025 (1.005-1.030); Urine pH 6.5 (5.0-7.0)
[2020-08-14 17:05] LABS: Barbiturates NEGATIVE (NEGATIVE); Benzodiazepines NEGATIVE (NEGATIVE); Cocaine NEGATIVE (NEGATIVE); METHAMPHETAM NEGATIVE (NEGATIVE); Methadone NEGATIVE (NEGATIVE); Opiates NEGATIVE (NEGATIVE); Phencyclidine NEGATIVE (NEGATIVE); THC Cannibis NEGATIVE (NEGATIVE)
[2020-08-14 17:11] LABS: Blood Morphology Comment NOT SEEN (NOT SEEN); Platelet Estimate ADEQ; White Blood Cell Scan OK (OK)
[2020-08-14] MEDS ORDERED: ONDANSETRON 4 MG/2 ML VIAL ONE (18:06)
--- NOTE | 2020-08-14 20:43 | ER ---
Nurse's Notes [facility] Name: Shira Bangura Age: 49 yrs Sex: Female : 1970 Arrival Date: 08/14/2020 Time: 15:57 Bed 17 Private MD: Diagnosis: Suicidal ideations Presentation: 08/14 15:57 Chief complaint: student liaison officer stated patient's provider called for a welfare check on ap3 the patient. Patient reportedly called her provider for more medication. Provider recently reduced dose of Clonopin, but patient stated she increased the amount of pills to make up the difference in the dose. Upon PD's arrival for the welfare check, patient informed them that while she currently doesn't have a plan in place for suicide, she wants to "end it". Coronavirus screen: Client denies travel out of the [place] in the last 14 days. Ebola Screen: No symptoms or risks identified at this time. Initial Sepsis Screen: Does the patient meet any 2 criteria? No. Patient's initial sepsis screen is negative. Does the patient have a suspected source of infection? No. Patient's initial sepsis screen is negative. Risk Assessment: Do you want to hurt yourself or someone else? Patient reports desire/thoughts of hurting themselves or someone else. Provider notified. Onset of symptoms was August 14, 2020. Care prior to arrival: None. 15:57 Method Of Arrival: Law Enforcement: [facility] ap3 15:57 Acuity: TASHI 2 ap3 Triage Assessment: 16:02 General: Appears comfortable, Behavior is anxious, quiet. General: Appears. General: ap3 patient reports not having a current plan for suicide, but that she would like to "end it". Patient states that her provider is weaning her off of her Clonopin, and that "it isn't going well." She states that she took more than was prescribed the last few days. She called her provider for a refill, and explained to them how she was feeling. . Pain: Denies pain. EENT:. Neuro: Level of Consciousness is awake, alert, obeys commands, Oriented to person, place, time, situation, Speech is normal. Cardiovascular: Capillary refill < 3 seconds. Respiratory: Airway is patent Respiratory effort is even, unlabored, Respiratory pattern is regular, symmetrical. GI: No signs and/or symptoms were reported involving the gastrointestinal system. : No signs and/or symptoms were reported regarding the genitourinary system. Derm: No signs and/or symptoms reported regarding the dermatologic system. Musculoskeletal: No signs and/or symptoms reported regarding the musculoskeletal system. Injury Description: Amputation. 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 - Social history:: Smoking status: Patient reports the use of cigarette tobacco products, smokes one-half pack cigarettes per day. Screenin:01 Abuse screen: Denies threats or abuse. Nutritional screening: No deficits noted. ap3 Tuberculosis screening: No symptoms or risk factors identified. Fall Risk None identified. Assessment: 16:15 Reassessment: Pt reports the doctor decreased Klonopin dosage from 8 mg/day to 3 mg/ jl7 day about a month ago and it's really been hard; started having SI about a week ago. Reports "The doctor told me to smoke marijuana." Pt denies any drug use. 16:51 General: Belongings removed from patient. Belonging list complete. Belongings sent with ap3 security. . 17:00 Reassessment: Patient and/or family updated on plan of care and expected duration. Pain ap3 level reassessed. Patient is alert, oriented x 3, equal unlabored respirations, skin warm/dry/pink. patient laying in bed. side rails are up X's 2. . 18:18 General: patient sitting up in bed. respirations are even and unlabored. patient is no ap3 longer actively vomiting. . 18:19 General: patient nauseous and vomiting. provider notified. new orders received. . ap3 19:04 General: patient sitting in bed. side rails up X's 2. Off going sitter is giving report ap3 to oncoming sitter. respirations are even and unlabored at this time. patient visibly upset. provider at bedside. new orders received. . 19:13 General: patient provided with a sheet. ap3 19:29 General: assigned sitter removed. will follow up with charge nurse on plan of care. . ap3 20:03 Reassessment: patient resting in bed. eyes closed, respirations are even and unlabored. ap3 side rails are up X's 2. . 20:22 General: General: Nurse spoke with receiving nurseCorinna and gave nurse to nurse ap3 report. . 20:51 General: nurse escorted patient to the restroom. ap3 22:23 General: is at the bedside. ap3 22:42 Reassessment: Patient and/or family updated on plan of care and expected duration. Pain ap3 level reassessed. Patient is alert, oriented x 3, equal unlabored respirations, skin warm/dry/pink. patient provided with ice chips. 23:23 General: Family member no longer at the bedside. ap3 08/15 00:00 Reassessment: Patient and/or family updated on plan of care and expected duration. Pain cr4 level reassessed. Patient is alert, oriented x 3, equal unlabored respirations, skin warm/dry/pink. Report received from Harini JONES. The patient laying right lateral side, breathing regular no new concerns.. 01:00 Reassessment: Patient and/or family updated on plan of care and expected duration. Pain cr4 level reassessed. Patient is alert, oriented x 3, equal unlabored respirations, skin warm/dry/pink. moved to ER bed 17. 01:36 Reassessment: patient helped to bathroom, patient had liquid stool.. cr4 02:27 Reassessment: Patient and/or family updated on plan of care and expected duration. Pain cr4 level reassessed. Patient states feeling better. arrived and is sitting with the patient.. 04:30 Reassessment: Patient and/or family updated on plan of care and expected duration. Pain cr4 level reassessed. Patient is alert, oriented x 3, equal unlabored respirations, skin warm/dry/pink. Patient states feeling better. 06:33 Reassessment: Patient and/or family updated on plan of care and expected duration. Pain cr4 level reassessed. Patient is alert, oriented x 3, equal unlabored respirations, skin warm/dry/pink. patient having mixed feelings about the place she is to be transported to. She was reassured was given the name of the place and the location. Patient still agreeable to go.. 07:00 Reassessment: Patient appears in no apparent distress at this time. Pt. is resting with rb3 eyes closed, respirations even, unlabored. Sitter at the bedside. 07:21 Reassessment: Gave report to [facility]. Information from the [facility] was given. All rb3 questions asked and answered. 07:29 Reassessment: Called Roni Bangura, at [phone], to notified him that the pt. rb3 was picked up by EMS and is being transferred. Psych: 08/14 16:15 Norton Suicide Severity Screening: In the past month, have you wished you were jl7 or wished you could go to sleep and not wake up? Patient responds "yes." "In the past month, have you actually had any thoughts of killing yourself?" Patient responds "yes." Based off the client's response additional Norton suicide severity screening questions to be further documented on paper forms. "In your lifetime, have you ever done anything, started to do anything, or prepared to do anything to end your life?" Patient responds "yes." Patient reports suicidal intent within 3 past months. Patient reports suicidal intent occurred greater than 3 months prior. Subjective: Patient's mood is sad, hopeless, Delusions are denied, Hallucinations are denied Having thoughts of suicide. Denies suicidal plan. Objective: Patient is cooperative, using poor eye contact, Speech is normal, Affect is appropriate. Interventions: Removed personal items and placed in bag. Patient placed in hospital gown. Searched person for dangerous items. Urine collected and sent for urine drug test. Belonging list filled out. Safety Checks: Personal items have been removed. Door is open. No visitors are present at this time. Pt denies substance abuse. Commitment: Patient will be a voluntary commitment. Vital Signs: 15:57 BP 184 / 112; Pulse 99; Resp 27; Temp 99; Pulse Ox 97% on R/A; ap3 16:16 BP 172 / 111; Pulse 97; Resp 17; Pulse Ox 96% on R/A; ap3 17:02 BP 171 / 97; Pulse 94; Resp 16; Pulse Ox 96% on R/A; ap3 17:30 BP 168 / 93; Pulse 97; Resp 16; Pulse Ox 98% on R/A; ap3 17:33 BP 153 / 95 (palp/); Pulse 92; Resp 17; Pulse Ox 96% on R/A; ap3 18:20 BP 147 / 92; Pulse 94; Resp 15; Pulse Ox 96% on R/A; ap3 19:03 BP 154 / 81; Pulse 91; Resp 16; Pulse Ox 95% on R/A; ap3 19:26 BP 165 / 92; Pulse 81; Resp 16; Pulse Ox 95% on R/A; ap3 20:10 BP 149 / 93; Pulse 58; Resp 16; Pulse Ox 97% on R/A; ap3 22:23 BP 131 / 71; Pulse 96; Resp 18; Pulse Ox 98% on R/A; ap3 23:24 BP 134 / 84; Pulse 81; Resp 17; Pulse Ox 97% on R/A; Pain 0/10; ap3 06/03 00:00 BP 167 / 82; Pulse 79; Resp 15; Pulse Ox 95% ; Pain 0/10; cr4 01:00 BP 144 / 84; Pulse 93; Resp 15; Temp 97.8; Pulse Ox 95% ; Pain 0/10; cr4 04:30 BP 132 / 84; Pulse 98; Resp 20; Temp 97.7; Pulse Ox 98% ; Pain 0/10; cr4 06:00 BP 129 / 83; Pulse 85; Resp 22; Pulse Ox 93% ; Pain 0/10; cr4 07:00 BP 129 / 85; Pulse 92; Resp 19; Pulse Ox 95% ; rb3 ED Course: 08/14 15:57 Patient arrived in ED. ap3 16:00 Keith Meehan MD is Attending Physician. tw4 16:01 Triage completed. ap3 16:07 Inserted saline lock: 20 gauge in right antecubital area, using aseptic technique. mt Blood collected. 16:14 Arm band placed on right wrist. ap3 16:14 Patient has correct armband on for positive identification. Placed in gown. Call light ap3 in reach. Side rails up X2. Adult w/ patient. online banking specialist on. Pulse ox on. NIBP on. Sitter at bedside. Patient is placed in psych hold. 16:16 Safety Checks: Personal items have been removed. The door is open or patient has been ap3 placed in a hallway bed/chair. Sitter present at this time. 16:17 Harini Bell RN is Primary Nurse. ap3 16:30 Initial lab(s) drawn, by ED staff, sent to lab. Urine collected: clean catch specimen, jl7 EKG done, by ED staff, reviewed by Keith Meehan MD COVID swab sent to lab. 16:52 Safety Checks: Personal items have been removed. The door is open or patient has been ap3 placed in a hallway bed/chair. belongings sent with security. 16:57 COVID-19 : Document "Date of Symptom Onset" if Symptomatic. Sent. ap3 17:44 faxed chart to [facility] [place]. bd 18:00 Missed attempt(s): 20 gauge in left antecubital area. Bleeding controlled, band aid mt applied, catheter tip intact. 18:02 faxed chart to [facility]. bd 18:03 Inserted saline lock: 24 gauge in right wrist, using aseptic technique. ap3 18:20 spoke with Francisca at [facility], beds are available, they will review the chart bd and call back. 19:07 Attending Physician role handed off by Keith Meehan MD rn 19:07 Sai Garcia MD is Attending Physician. rn 19:14 ED physician to see patient. ap3 20:17 [facility] [place] to do Nurse [place] Nurse. tt3 20:32 Phys[place] [facility] [place] to do Doc to Doc. Call was connected with Dr. barbara Garcia. 03 02:00 Notified ED physician of other patient crying and anxious and requesting anxiety cr4 medication. 07:01 Primary Nurse role handed off by Harini Bell, KAREN bd 07:16 Samia Lynn, RN is Primary Nurse. rb3 07:24 No provider procedures requiring assistance completed. IV discontinued, intact, rb3 bleeding controlled, No redness/swelling at site. Pressure dressing applied. Administered Medications: 08/14 16:28 Drug: hydrALAZINE 10 mg Route: IVP; Site: right antecubital; ap3 22:24 Follow up: Response: No adverse reaction; Blood pressure is lowered ap3 18:06 Drug: Zofran (Ondansetron) 4 mg Route: IVP; Site: right wrist; ap3 19:05 Follow up: Response: No adverse reaction; Nausea is decreased ap3 19:13 Drug: Ativan (LORazepam) 1 mg Route: IVP; Site: right wrist; ap3 20:51 Follow up: Response: No adverse reaction; Anxiety decreased ap3 08/15 02:09 Drug: Ativan (LORazepam) 1 mg Route: IVP; Site: right wrist; cr4 02:45 Follow up: Response: No adverse reaction; Anxiety decreased cr4 Outcome: 08/14 20:42 ER care complete, transfer ordered by . rn 08/15 07:24 Transferred by ground EMS Transfer form completed. Note: [facility] [place] Condition: stable Instructed on the need for transfer. 07:25 Patient left the ED. rb3 Signatures: Amber Kearney Claudia, RN RN cr4 Sai Garcia MD MD rn Leal, Jahala, RN RN jl7 Tere Peters mt, Terrence, MD MD tw4 Harini Bell RN RN ap3 Luis Alberto Perez3 Samia Lynn RN RN rb3
--- NOTE | 2020-08-14 20:43 | EDPHYS ---
Physician Documentation [facility] Name: Shira Bangura Age: 49 yrs Sex: Female : 1970 Arrival Date: 08/14/2020 Time: 15:57 Bed 17 Private MD: ED Physician Sai Garcia HPI: 08/14 16:42 This 49 yrs old Female presents to ER via Law Enforcement with complaints of tw4 depression. 16:42 The patient presents to the emergency department with anxiety, depression. Onset: The tw4 symptoms/episode began/occurred today. Past psychiatric history: Prior diagnosis: depression. Severity of symptoms: At their worst the symptoms were moderate. 17:19 The patient presents to the emergency department with suicide ideation. 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 - Social history:: Smoking status: Patient reports the use of cigarette tobacco products, smokes one-half pack cigarettes per day. ROS: 17:17 Constitutional: Negative for fever, chills, and weight loss, Eyes: Negative for injury, tw4 pain, redness, and discharge, Cardiovascular: Negative for chest pain, palpitations, and edema, Respiratory: Negative for shortness of breath, cough, wheezing, and pleuritic chest pain, Abdomen/GI: Negative for abdominal pain, nausea, vomiting, diarrhea, and constipation, Back: Negative for injury and pain, MS/Extremity: Negative for injury and deformity. 17:17 Psych: Positive for anxiety, depression, suicidal ideation. Exam: 17:20 Constitutional: This is a well developed, well nourished patient who is awake, alert, tw4 and in no acute distress. Head/Face: Normocephalic, atraumatic. Chest/axilla: Normal chest wall appearance and motion. Nontender with no deformity. No lesions are appreciated. Cardiovascular: Regular rate and rhythm with a normal S1 and S2. No gallops, murmurs, or rubs. Normal PMI, no JVD. No pulse deficits. Respiratory: Lungs have equal breath sounds bilaterally, clear to auscultation and percussion. No rales, rhonchi or wheezes noted. No increased work of breathing, no retractions or nasal flaring. Abdomen/GI: Soft, non-tender, with normal bowel sounds. No distension or tympany. No guarding or rebound. No evidence of tenderness throughout. Back: No spinal tenderness. No costovertebral tenderness. Full range of motion. Skin: Warm, dry with normal turgor. Normal color with no rashes, no lesions, and no evidence of cellulitis. MS/ Extremity: Pulses equal, no cyanosis. Neurovascular intact. Full, normal range of motion. Neuro: Awake and alert, GCS 15, oriented to person, place, time, and situation. Cranial nerves II-XII grossly intact. Motor strength 5/5 in all extremities. Sensory grossly intact. Cerebellar exam normal. Normal gait. Vital Signs: 15:57 BP 184 / 112; Pulse 99; Resp 27; Temp 99; Pulse Ox 97% on R/A; ap3 16:16 BP 172 / 111; Pulse 97; Resp 17; Pulse Ox 96% on R/A; ap3 17:02 BP 171 / 97; Pulse 94; Resp 16; Pulse Ox 96% on R/A; ap3 17:30 BP 168 / 93; Pulse 97; Resp 16; Pulse Ox 98% on R/A; ap3 17:33 BP 153 / 95 (palp/); Pulse 92; Resp 17; Pulse Ox 96% on R/A; ap3 18:20 BP 147 / 92; Pulse 94; Resp 15; Pulse Ox 96% on R/A; ap3 19:03 BP 154 / 81; Pulse 91; Resp 16; Pulse Ox 95% on R/A; ap3 19:26 BP 165 / 92; Pulse 81; Resp 16; Pulse Ox 95% on R/A; ap3 20:10 BP 149 / 93; Pulse 58; Resp 16; Pulse Ox 97% on R/A; ap3 22:23 BP 131 / 71; Pulse 96; Resp 18; Pulse Ox 98% on R/A; ap3 23:24 BP 134 / 84; Pulse 81; Resp 17; Pulse Ox 97% on R/A; Pain 0/10; ap3 06/03 00:00 BP 167 / 82; Pulse 79; Resp 15; Pulse Ox 95% ; Pain 0/10; cr4 01:00 BP 144 / 84; Pulse 93; Resp 15; Temp 97.8; Pulse Ox 95% ; Pain 0/10; cr4 04:30 BP 132 / 84; Pulse 98; Resp 20; Temp 97.7; Pulse Ox 98% ; Pain 0/10; cr4 06:00 BP 129 / 83; Pulse 85; Resp 22; Pulse Ox 93% ; Pain 0/10; cr4 07:00 BP 129 / 85; Pulse 92; Resp 19; Pulse Ox 95% ; rb3 MDM: 08/14 16:00 Patient medically screened. tw4 19:08 Differential diagnosis: acute psychotic break. Data reviewed: vital signs, nurses tw4 notes. Data interpreted: Pulse oximetry: Interpretation: normal. Counseling: I had a detailed discussion with the patient and/or guardian regarding: the historical points, exam findings, and any diagnostic results supporting the discharge/admit diagnosis, the presence of at least one elevated blood pressure reading (>120/80) during this emergency department visit. 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 20:41 ED course: Accepted for Transfer to [facility]. . rn 08/14 16:07 Order name: Basic Metabolic Panel [facility] 08/14 16:07 Order name: CBC with Diff; Complete Time: 19:08 tw 08/14 16:07 Order name: ETOH Level; Complete Time: 19:08 tw 08/14 16:07 Order name: Hepatic Function [facility] 08/14 16:07 Order name: PT-INR; Complete Time: 19:08 [facility] 08/14 16:07 Order name: Ptt, Activated; Complete Time: 19:08 tw4 08/14 16:07 Order name: Salicylate; Complete Time: 19:08 tw4 08/14 16:07 Order name: Urine Drug Screen; Complete Time: 19:08 [facility] 08/14 16:20 Order name: COVID-19 : Document "Date of Symptom Onset" if Symptomatic. em1 08/14 16:50 Order name: Urine Dipstick-Ancillary; Complete Time: 19:08 EDMS 08/14 17:11 Order name: CBC Smear Scan; Complete Time: 19:08 EDME 08/14 17:43 Order name: SARS-COV-2 RT PCR; Complete Time: 19:08 EDME 08/14 20:54 Order name: Acetaminophen Level EDME 08/14 16:07 Order name: Suicide Precautions; Complete Time: 16:30 [facility] 08/14 16:07 Order name: EKG; Complete Time: 16:07 tw 08/14 16:07 Order name: EKG - Nurse/Tech; Complete Time: 16:30 tw 08/14 16:07 Order name: IV Saline Lock; Complete Time: 16:23 tw 08/14 16:07 Order name: Labs collected and sent; Complete Time: 16:56 [facility] 08/14 16:07 Order name: Suicide Screening ([place]); Complete Time: 16:30 [facility] 08/14 16:07 Order name: Urine Dipstick-Ancillary (obtain specimen); Complete Time: 16:56 [facility] 08/14 16:07 Order name: Suicide Precautions; Complete Time: 16:07 pa 08/14 16:07 Order name: EKG; Complete Time: 16:07 pa 08/14 16:07 Order name: EKG - Nurse/Tech; Complete Time: 16:30 pa 08/14 16:07 Order name: IV Saline Lock; Complete Time: 16:07 pa 08/14 16:07 Order name: Labs collected and sent; Complete Time: 16:07 pa 08/14 16:07 Order name: Suicide Screening ([place]); Complete Time: 16:30 pa 08/14 16:07 Order name: Urine Dipstick-Ancillary (obtain specimen); Complete Time: 16:56 mt Administered Medications: 16:28 Drug: hydrALAZINE 10 mg Route: IVP; Site: right antecubital; ap3 22:24 Follow up: Response: No adverse reaction; Blood pressure is lowered ap3 18:06 Drug: Zofran (Ondansetron) 4 mg Route: IVP; Site: right wrist; ap3 19:05 Follow up: Response: No adverse reaction; Nausea is decreased ap3 19:13 Drug: Ativan (LORazepam) 1 mg Route: IVP; Site: right wrist; ap3 20:51 Follow up: Response: No adverse reaction; Anxiety decreased ap3 06/03 02:09 Drug: Ativan (LORazepam) 1 mg Route: IVP; Site: right wrist; cr4 02:45 Follow up: Response: No adverse reaction; Anxiety decreased cr4 Disposition: 08/14/20 20:42 Transfer ordered to Psych Facility. Diagnosis is Suicidal ideations. - Reason for transfer: Higher level of care. - Accepting physician is . - Condition is Stable. - Problem is new. - Symptoms are unchanged. Signatures: Dispatcher [employer] EDMS Bailey Salazar, KAREN RN cr4 Sai Garcia MD MD rn Thompson, Moriah mt Wadley, Terrence, MD MD tw4 Harini Bell RN RN ap3 Samia Lynn RN RN rb3 Corrections: (The following items were deleted from the chart) 08/14 16:09 16:07 ACETAMINOPHEN+C.LAB.BRZ ordered. EDMS EDMS 16:09 16:07 BASIC METABOLIC PANEL+C.LAB.BRZ ordered. EDMS EDMS 16:09 16:07 CBC+H.LAB.BRZ ordered. EDMS EDMS 16:09 16:07 ETHANOL+C.LAB.BRZ ordered. EDMS EDMS 16:09 16:07 HEPATIC FUNCTION+C.LAB.BRZ ordered. EDMS EDMS 16:09 16:07 PROTIME (+INR)+COAG.LAB.BRZ ordered. EDMS EDMS 16:09 16:07 PTT, ACTIVATED+COAG.LAB.BRZ ordered. EDMS EDMS 16:09 16:07 SALICYLATE+C.LAB.BRZ ordered. EDMS EDMS 16:09 16:07 URINE DRUG SCREEN+CHEM UR.LAB.BRZ ordered. EDMS EDMS 16:10 16:07 Acetaminophen Level ordered. EDMS EDMS 16:57 16:07 Urine Test ordered. tw4 ap3 17:01 16:20 CORONAVIRUS ordered. EDMS EDMS 20:54 16:12 ACETAMINOPHEN+C.LAB.BRZ ordered. EDMS EDMS 08/15 07:25 08/14 20:42 08/14/2020 20:42 Transfer ordered to Psych Facility. Diagnosis is Suicidal rb3 ideations. Reason for transfer: Higher level of care. Accepting physician is . Condition is Stable. Problem is new. Symptoms are unchanged. rn
[2020-08-15] MEDS ORDERED: LORazepam 2 MG/ML VIAL ONE (02:20)
--- NOTE | 2020-08-15 07:52 | EKG ---
Test Date: 2020-08-14 Test Time: 16:21:05 Physical Security Manager: TARI MEASUREMENT RESULTS: Intervals: Rate: 94 TX: 156 QRSD: 84 QT: 352 QTc: 440 [place]: P: 87 TX: 156 QRS: 63 T: 37 INTERPRETIVE STATEMENTS: Normal sinus rhythm Possible Left atrial enlargement Cannot rule out Anterior infarct, age undetermined Abnormal ECG Compared to ECG 04/01/2020 09:00:08 Myocardial infarct finding now present Sinus tachycardia no longer present Electronically Signed On 08-15-20 07:50:32 CDT by Harry Girard
[2020-08-15 08:07] VITALS: TEMP 97.7
[2020-08-15 08:10] VITALS: BP 129/85; O2SAT 95
== END 2020-08-15 07:25 ==
LOC: ER 15:48
DX: R45.851 Suicidal ideations (principal); F41.8 Other specified anxiety disorders; I10 Essential (primary) hypertension; F17.210 Nicotine dependence, cigarettes, uncomplicated; E11.9 Type 2 diabetes mellitus without complications; Z20.822 Contact with and (suspected) exposure to COVID-19; Z88.0 Allergy status to penicillin; Z88.2 Allergy status to sulfonamides; Z91.048 Other nonmedicinal substance allergy status
CPT/HCPCS: 36415; 80048; 80076; 80307; 80320; 80329; 81003; 85025; 85610; 85730; 93005; 99285; J0360; J2405; U0003